=== PATIENT | female | born 2000 | race Caucasian/White ===

== ENCOUNTER 2021-01-23 16:22 | Emergency (ER) | payer OTHER ==
[~2021-01-23] VITALS: Ht 170.2 cm; Wt 63.6 kg
[2021-01-23 16:32] VITALS: BP 124/68
[2021-01-23] MEDS ORDERED: IBUPROFEN 600 MG TABLET PO ONE (17:00)
== END 2021-01-23 19:49 | disposition home or self-care (01) ==
LOC: EMS 16:26
DX: S93.402A Sprain of unspecified ligament of left ankle, initial encounter (principal); X50.1XXA Overexertion from prolonged static or awkward postures, initial encounter; Y93.23 Activity, snow (alpine) (downhill) skiing, snowboarding, sledding, tobogganing and snow tubing; Y92.89 Other specified places as the place of occurrence of the external cause; Y99.8 Other external cause status
CPT/HCPCS: 99283